=== PATIENT | female | born 1960 | race Caucasian/White ===

== ENCOUNTER 2021-08-20 08:00 | Outpatient (CLI) | payer BC ==
--- NOTE | 2021-08-20 13:09 | XRAY Report ---
PROCEDURE: Ribs w/PA Chest LT INDICATIONS: CONTUSION OF LEFT BACK WALL OF THORAX TECHNIQUE: 3 views of the left ribs were acquired, along with a single view chest. COMPARISON: None FINDINGS: Surgical changes and devices: None. Bones and chest wall: No fractures or dislocations. No suspicious bony lesions. Overlying soft tis sues appear unremarkable. Lungs and pleura: No pleural effusions or pneumothorax. Left basilar atelectasis and or infiltrate. Mediastinum: Mediastinal contours appear normal. Heart size is normal. IMPRESSION: Left basilar atelectasis and or infiltrate. No fracture. Reviewed by: Parvez Pollard MD on 08/20/2021 12:07 PM MARYLIN Approved by: Parvez Pollard MD on 08/20/2021 12:07 PM [email or web address] Station ID: [id number]
== END 2021-08-20 23:59 | disposition home or self-care (01) ==
LOC: DI.S 08:00
PROVIDERS: ATTEND Emergency Medicine
DX: R91.8 Other nonspecific abnormal finding of lung field (principal); S20.222A Contusion of left back wall of thorax, initial encounter